=== PATIENT | male | born 1980 | race Hispanic/Latino ===

== ENCOUNTER 2018-12-23 11:24 | Observation (INO) | payer OTHER ==
[~2018-12-23] VITALS: Ht 172.7 cm; Wt 112.1 kg
[2018-12-23] MEDS ORDERED: ASPIRIN 81 MG CHEW TAB PO ONE ×2 (11:45→13:30)
[2018-12-23 12:03] LABS: BASOPHILS % 0.3 % (0.0-1.0); EOSINOPHILS % 0.3 % (0.0-6.0); HEMATOCRIT 49.5 % (38.2-49.6); HEMOGLOBIN 16.2 g/dL (14.0-18.0); LYMPHOCYTES # (AUTO) 2.5 (1.0-3.2); LYMPHOCYTES % 29.1 % (18.0-39.1); MEAN CORPUSCULAR HEMOGLOBIN 26.6 pg (28-32); MEAN CORPUSCULAR HGB CONC 32.7 g/dL (31-35); MEAN CORPUSCULAR VOLUME 81.3 fL (81-99); MONOCYTES # (AUTO) 0.6 (0.2-0.8); MONOCYTES % 6.8 % (4.4-11.3); NEUTROPHILS # (AUTO) 5.5 (2.1-6.9); NEUTROPHILS % 63.3 % (38.7-80.0); PLATELET COUNT 309 x10e3/uL (140-360); RED BLOOD COUNT 6.09 x10e6/uL (4.3-5.7); RED CELL DISTRIBUTION WIDTH 14.5 % (11.7-14.4)
[2018-12-23 12:09] LABS: INR 0.93
[2018-12-23 12:10] LABS: PARTIAL THROMBOPLASTIN TIME 33.9 seconds (23.8-35.5)
[2018-12-23 12:25] LABS: ALANINE AMINOTRANSFERASE 28 IU/L (0-55); ALBUMIN 4.2 g/dL (3.5-5.0); ALBUMIN/GLOBULIN RATIO 1.3 (0.8-2.0); ALKALINE PHOSPHATASE 70 IU/L (40-150); ANION GAP 15.3 mmol/L (8-16); BLOOD UREA NITROGEN 22 mg/dL (7-26); BUN/CREATININE RATIO 16 (6-25); CALCIUM 10.4 mg/dL (8.4-10.2); CARBON DIOXIDE 24 mmol/L (22-29); CHLORIDE 104 mmol/L (98-107); CREATINE KINASE 603 IU/L (30-200); CREATININE, SERUM 1.36 mg/dL (0.72-1.25); EST GLOMERULAR FILTRATION RATE 58 ML/MIN (60-); GLUCOSE 94 mg/dL (74-118); POTASSIUM 4.3 mmol/L (3.5-5.1); SODIUM 139 mmol/L (136-145)
--- NOTE | 2018-12-23 12:30 | NUR ---
C/O OF DIZZINESS WHEN AMBULATING TO BATHROOM
[2018-12-23] MEDS ORDERED: SODIUM CHLORIDE 0.9% 1000ML 2,000 ML IV STA (12:38)
[2018-12-23 12:39] LABS: BILIRUBIN,URINE NEGATIVE (NEGATIVE); CLARITY,URINE CLEAR (CLEAR); COLOR,URINE YELLOW (YELLOW); KETONES,URINE NEGATIVE (NEGATIVE); LEUKOCYTE ESTERASE ,URINE NEGATIVE (NEGATIVE); NITRITE,URINE NEGATIVE (NEGATIVE); PROTEIN,URINE DIPSTICK NEGATIVE (NEGATIVE); URINE UROBILINOGEN 0.2 mg/dL (0.2 - 1)
[2018-12-23 12:49] LABS: BACTERIA,URINE RARE /HPF; EPITHELIAL CELLS,URINE FEW /LPF; RBC,URINE 0-5 /HPF (0-5); WBC,URINE (MAN) 0-5 /HPF (0-5)
--- NOTE | 2018-12-23 12:55 | Diagnostic Imaging Report ---
CT BRAIN WO HISTORY: Syncope COMPARISON: None. TECHNIQUE: Noncontrast axial scans were obtained from skull base to the vertex. Coronal and sagittal reconstructions obtained from the axial data. One or more of the following dose reduction techniques were used: Automated exposure control, adjustment of the mA and/or kV according to patient size, and/or utilization of iterative reconstruction technique. DISCUSSION: Scalp/Skull: Unremarkable. Brain sulci: Appropriate for patient's age. Ventricles: Normal in size and configuration. No hydrocephalus. Extra-axial spaces: No masses or fluid collections. Parenchyma: No abnormal densities. No mass, hemorrhage, or large vascular territory acute infarct. Dural sinuses: No abnormal densities. Sellar/Suprasellar region: Intact. Skull base: Intact. Incidental findings: None. IMPRESSION: No intracranial abnormalities. Signed by: Dr. Laci May M.D. on 12/23/2018 12:52 PM
--- NOTE | 2018-12-23 13:04 | Diagnostic Imaging Report ---
Frontal and lateral views of the chest. HISTORY: Shortness of breath COMPARISON: None available. DISCUSSION: Soft tissue attenuation partially limits sensitivity of the exam. Overlying artifacts. Lungs: Low lung volumes result in bibasilar vascular crowding, accentuation of the pulmonary interstitial markings, central pulmonary vasculature, and the cardiac silhouette. Allowing for these limitations, the findings are as follows: No evidence of a consolidative pneumonia or pulmonary alveolar edema. Pleura: No pleural effusion or pneumothorax. Heart and mediastinum: The cardiomediastinal silhouette appear(s) unremarkable. Bones and soft tissues: Appear unremarkable. IMPRESSION: No acute radiographic abnormality. Signed by: Dr. Vj Veras D.O., M.M.M. on 12/23/2018 1:01 PM
[2018-12-23] MEDS ORDERED: ONDANSETRON HCL INJ 2MG/ML 2ML 2 MG/ML VIAL IV PRN (13:15)
--- OUTSIDE RECORDS SUMMARY | 2018-12-23 13:17 | XMS REPORT ---
[facility] Address Unknown Phone Unavailable Care Team Providers Care Junior Programmer Name Role Phone Annette LORENZANA Unavailable Unavailable Problems This patient has no known problems. Allergies, Adverse Reactions, Alerts This patient has no known allergies or adverse reactions. Medications This patient has no known medications. Results Test Description Test Time Test Comments Text Results Atomic Results Result Comments CHEST 2 VIEWS 2018-12-23 13:00:00 [facility] [address] [address] Patient Name: CHRIS MULLEN MR #: [id number] : 1980 Age/Sex: 38/M Req #: [id number] Adm Physician: Ordered by: RITU SALAS NP Report #: [id number] Location: ER Room/Bed: Procedure: [id number] DX/CHEST 2 VIEWS Exam Date: 12/23/18 Exam Time: 1216 REPORT STATUS: Signed Frontal and lateral views of the chest. HISTORY: Shortn ess of breath COMPARISON: None available. DISCUSSION: Soft tissue attenuation partially limits sensitivity of the exam. Overlying artifacts. Lungs: Low lung volumes result in bibasilar vascular crowding, accentuation of the pulmonary interstitial markings, central pulmonary vasculature, and the cardiac silhouette. Allowing for these limitations, the findings are as follo ws: No evidence of a consolidative pneumonia or pulmonary alveolar edema. Pleura: No pleural effusion or pneumothorax. Heart and mediastinum: The cardiomediastinal silhouette appear(s) unremarkable. Bones and soft tissues: Appear unremarkable. IMPRESSION: No acute radiographic abnormality. Signed by: Dr. Alicia Veras D.O., M.M.M. on 12/23/2018 1:01 PM Dictated By: ALICIA VERAS DO 130 Transcribed By: DEVEN on 12/23/18 130 COPY TO: RITU SALAS NP CT BRAIN WO 2018-12-23 12:49:00 [address] [place] [address] Patient Name: CHRIS MULLEN MR #: [id number] : 1980 Age/Sex: 38/M Req #: [id number] Adm Physician: Ordered by: RITU SALAS NP Report #: [id number] Location: ER Room/Bed: Procedure: [id number] CT/CT BRAIN WO Exam Date: 12/23/18 Exam Time: 1216 REPORT STATUS: Signed CT BRAIN WO HISTORY: Syncope COMPARISON: None. TECHNIQUE: Noncontrast axial scans were obtained from skull base to the vertex. Coronal and sagittal reconstructions obtained from the axial data. One or more of the following dose reduction techniques were used: Automated exposure control, adjustment of the mA and/or kV according to patient size, and/or utilization of iterative reconstruction technique. DISCUSSION: Scalp/Skull: Unremarkable. Brain sulci: Appropriate for patient's age. Ventricles: Normal in size and configuration. No hydrocephalus. Extra-axial spaces: No masses or fluid collections. Parenchyma: No abnormal densities. No mass, hemorrhage, or large vascular territory acute infarct. Dural sinuses: No abnormal densities. Sellar/Suprasellar region: Intact. Skull base: Intact. Incidental findings: None. IMPRESSION: No intracranial abnormalities. Signed by: Dr. Laci May M.D. on 12/23/2018 12:52 PM Dictated By: LACI MAY MD Electronically S igned By: LACI MAY MD on 12/23/181251 Transcribed By: DEVEN on 12/23/181251 COPY TO: RITU SALAS NP
[2018-12-23] MEDS ORDERED: MORPHINE SULFATE INJ 4 MG/ML INJ 1ML IV PRN (13:30)
[2018-12-23 13:40] VITALS: BP 154/96
[2018-12-23 13:43] VITALS: BP 154/96
[2018-12-23] MEDS: SODIUM CHLORIDE 0.9% 1000ML 1,000 ML IV SCH ×3 (13:50→19:52)
[2018-12-23 14:21] VITALS: BP 154/96
[2018-12-23 16:00] VITALS: BP 135/87
--- NOTE | 2018-12-23 16:50 | NUR ---
H&P cc: fatigue and sob HPI: 38yoM, PCP , developed fatigue, found to have acute rhabdomyolysis and HOLLI. Pt states that last 3 weeks, BP has been increased, went to PCP, labs done; resutls pending; But due to SOB and Chest tightness, came to hospital. Pt also had numbness in both hands and left neck. Last stress test many years ago- reported as negative. PMH: Obesity, tobacco use (chew) PShx: appendectomy at 4yo, knee x3 ALlergies; see emr Fh/SH; ; chews tobacco; does vesna/tile Meds; see MAR ROS: no f/c/s/N/V/D/CERNA/vision changes/dizziness/skin rash v/s revd PE tired appearing anicteric ns1s2 mod bs soft nt nd no e/t skin dry n. affect a&ox3; last labs/meds revd A/P: 38yoM HOLLI Acute rhabdomyolysis Obesity BMI 37.3 PLAN IVF hab1c/lipids LIZABETH rodriguez Consider Stress test for hand symptoms. Nicholas Maguire MD, PhD
[2018-12-23 17:51] LABS: CHOL/HDL RATIO 4.3 (3.9-4.7)
[2018-12-23 19:15] VITALS: BP 135/87
[2018-12-23 19:52] LABS: CREATINE KINASE 458 IU/L (30-200)
[2018-12-23 20:00] VITALS: BP 138/96
[2018-12-24] VITALS: BP 135/104
[2018-12-24 04:00] VITALS: BP 141/96
[2018-12-24 05:57] LABS: BASOPHILS % 0.4 % (0.0-1.0); EOSINOPHILS # (AUTO) 0.1 (0.0-0.4); EOSINOPHILS % 1.4 % (0.0-6.0); HEMATOCRIT 48.5 % (38.2-49.6); HEMOGLOBIN 15.3 g/dL (14.0-18.0); LYMPHOCYTES # (AUTO) 3.1 (1.0-3.2); LYMPHOCYTES % 40.7 % (18.0-39.1); MEAN CORPUSCULAR HEMOGLOBIN 26.5 pg (28-32); MEAN CORPUSCULAR HGB CONC 31.5 g/dL (31-35); MEAN CORPUSCULAR VOLUME 84.1 fL (81-99); MONOCYTES # (AUTO) 0.6 (0.2-0.8); MONOCYTES % 7.2 % (4.4-11.3); NEUTROPHILS # (AUTO) 3.8 (2.1-6.9); NEUTROPHILS % 50.2 % (38.7-80.0); PLATELET COUNT 274 x10e3/uL (140-360); RED BLOOD COUNT 5.77 x10e6/uL (4.3-5.7); RED CELL DISTRIBUTION WIDTH 14.6 % (11.7-14.4)
[2018-12-24 06:00] LABS: INR 1.04; PROTHROMBIN TIME 14.1 seconds (11.9-14.5)
[2018-12-24 06:01] LABS: PARTIAL THROMBOPLASTIN TIME 33.7 seconds (23.8-35.5)
[2018-12-24 06:04] LABS: ANION GAP 13.2 mmol/L (8-16); BLOOD UREA NITROGEN 15 mg/dL (7-26); BUN/CREATININE RATIO 13 (6-25); CALCIUM 9.3 mg/dL (8.4-10.2); CARBON DIOXIDE 24 mmol/L (22-29); CHLORIDE 107 mmol/L (98-107); CREATININE, SERUM 1.16 mg/dL (0.72-1.25); EST GLOMERULAR FILTRATION RATE > 60 ML/MIN (60-); GLUCOSE 99 mg/dL (74-118); POTASSIUM 4.2 mmol/L (3.5-5.1); SODIUM 140 mmol/L (136-145)
[2018-12-24 06:28] LABS: CREATINE KINASE MB 2.7 ng/mL (0-5.0)
--- NOTE | 2018-12-24 07:28 | NUR ---
D/C summary Principal Dx: HOLLI Acute rhabdomyolysis Secondary Dx: Obesity BMI 37.3 PLAN IVF hab1c/lipids LIZABETH bahcharly Consider Stress test for hand symptoms. 12/24 CPK improving; LDL 97. cont fluids. d/c home f/u pcp 1 week; drinks lots of water stable d/c>35mins Nicholas Maguire MD, PhD
--- NOTE | 2018-12-24 07:30 | Diagnostic Imaging Report ---
EXAMINATION: CHEST SINGLE (PORTABLE) INDICATION: ^SOB ^[id number] ^[id number] COMPARISON: 12/23/2018 FINDINGS: AP view TUBES and LINES: None. LUNGS: Limited by body habitus and low lung volumes. Mild central vascular congestion. PLEURA: No pleural effusion or pneumothorax. HEART AND MEDIASTINUM: The cardiomediastinal silhouette is unremarkable. BONES AND SOFT TISSUES: No acute osseous lesion. Soft tissues are unremarkable. UPPER ABDOMEN: No free air under the diaphragm. IMPRESSION: Mild central vascular congestion. Otherwise, unremarkable. Signed by: Dr. Silvio Ross MD on 12/24/2018 7:27 AM
[2018-12-24 07:49] VITALS: BP 144/80
[2018-12-24 08:22] VITALS: BP 144/80
[2018-12-24] MEDS ORDERED: ASPIRIN 81 MG ENTERIC COATED PO SCH (09:00)
[2018-12-24 11:46] VITALS: BP 139/96
[2018-12-24 15:37] VITALS: BP 158/99
--- NOTE | 2018-12-24 17:05 | NUR ---
Discharge order received from Dr Maguire, stated that patient can go home, f/up pcp in 5 days, drink plenty of water
--- NOTE | 2018-12-24 17:41 | NUR ---
patient discharged home, No new prescriptions from Dr Maguire. IV canula removed with tip intact, no ss of infiltration, not in any distress. family at bed side to pick patient
== END 2018-12-24 17:54 | disposition home or self-care (01) ==
LOC: ER 11:24 → ERHOLD 13:14 → IMCU 13:42
PROVIDERS: ADMIT Internal Medicine; ATTEND Internal Medicine
DX: N17.9 Acute kidney failure, unspecified (principal); M62.82 Rhabdomyolysis; E66.9 Obesity, unspecified; Z68.37 Body mass index [BMI] 37.0-37.9, adult; F17.220 Nicotine dependence, chewing tobacco, uncomplicated
CPT/HCPCS: 36415 ×2; 70450; 71045; 71046; 80048; 80053; 80061; 81001; 82550 ×2; 82553 ×2; 83036; 84484 ×2; 85025 ×2; 85379; 85610 ×2; 85730 ×2; 93005; 93306; 93880; 99284; G0378 ×2; J7030 ×2

== ENCOUNTER 2019-08-06 06:37 | Emergency (ER) | payer OTHER ==
[~2019-08-06] VITALS: Ht 175.3 cm; Wt 99.8 kg
--- OUTSIDE RECORDS SUMMARY | 2019-08-06 06:40 | XMS REPORT | Continuity of Care Document ---
Author Author [facility] Organization [facility] Address [address] [place] [address] [address]. [address] [place] [address] Phone Unavailable Care Team Providers Care Willow Machine Operator Name Role Phone NONSTAFF PCP Unavailable JAMIE RUIZ Attphys Unavailable JAMIE RUIZ Admphys Unavailable Payers Payer Name Policy Type Policy Number Effective Date Expiration Date Godfrey Fuentes Pos [id number] 2011 00:00:00 [facility] Problems This patient has no known problems. Allergies, Adverse Reactions, Alerts This patient has no known allergies or adverse reactions. Medications This patient has no known medications. Procedures Procedure Date / Time Performed Performing Clinician [facility] e X-ray of chest, two views 2018-12-23 00:00:00 RITU SALAS CH I [facility] Computed tomography of brain without radiopaque contrast 201 11-14-19 00:00:00 RITU SALAS [facility] Encounters Start Date/Time End Date/Time Encounter Type Admission Type Attendi [facility] Care Department Encounter ID Source 2018-12-23 13:14:00 2018-12-24 17:54:00 Discharged Inpatient (obs) 1 JAMIE RUIZ [facility] [id number] [facility] Results Test Description Test Time Test Comments Results Result Comments Source CHEST SINGLE (PORTABLE) 2018-12-24 07:26:00 [facility] [address] [place], [place] [address] Patient Name: CHRIS MULLEN MR #: [id number] : 1980 Age/Sex: 38/M Req #: [id number] Adm Physician: JAMIE RUIZ MD Ordered by: RITU SALAS REAL ESTATE MANAGEMENT SPECIALIST Report #: [id number] Location: [facility] Room/Bed: [place] [address] Procedure: [id number] DX/CHEST SINGLE (PORTABLE) Exam Date: 12/24/18 Exam Time: 514 REPORT STATUS: Signed EXAMINATION: CHEST SINGLE (PORTABLE) INDICATION: SOB [id number] COMPARISON: 12/23/2018 FINDINGS: AP view TUBES and LINES: None. LUNGS: Limited by body habitus and low lung volumes. Mild central vascular congestion. PLEURA: No pleural effusion or pneumothorax. HEART AND MEDIASTINUM: The cardiomediastinal silhouette is unremarkable. BONES AND SOFT TISSUES: No acute osseous lesion. Soft tissues are unremarkable. UPPER ABDOMEN: No free air under the diaphragm. IMPRESSION: Mild central vascular congestion. Otherwise, unremarkable. Signed by: Dr. Silvio Brooks MD on 12/24/2018 7:27 AM Dictated By: SILVIO BROOKS MD 6 Transcribed By: DEVEN on 12/24/18726 COPY TO: RITU SALAS NP Creatine Kinase MB 2018-12-24 06:31:00 Test Item Creatine Kinase MB (test code = 14402-0) 2.70 0-5.0 [facility] [id number] 06:31:00* Test Item Value Reference Range Interpretation Comments Troponin I (test code = ULF9319) 0.006 0-0.300 [facility] CenterCreatine Inrfby9935-17-33 06:25:00* Test Item Value Reference Range Interpretation Comments Creatine Kinase (test code = 2157-6) 409 30-200 H [facility] CenterWhite Blood Gypba3713-54-10 06:10:00* Test Item Value Reference Range Interpretation Comments White Blood Count (test code = 6690-2) 7.61 4.8-10.8 [facility] CenterRed Blood Jcpbz6242-94-64 06:10:00* Test Item Value Reference Range Interpretation Comments Red Blood Count (test code = 789-8) 5.77 4.3-5.7 H [facility] CenterHemoglobin2019-10-21 06:10:00* Test Item Value Reference Range Interpretation Comments Hemoglobin (test code = 56043-2) 15.3 14.0-18.0 [facility] CenterHematocrit2019-10-21 06:10:00* Test Item Value Reference Range Interpretation Comments Hematocrit (test code = 4544-3) 48.5 38.2-49.6 [facility] CenterMean Corpuscular Rqelej7428-31-97 06:10:00* Test Item Value Reference Range Interpretation Comments Mean Corpuscular Volume (test code = 787-2) 84.1 81-99 [facility] CenterMean Corpuscular Wweihzoopk0869-27-09 06:10:00* Test Item Value Reference Range Interpretation Comments Mean Corpuscular Hemoglobin (test code = 785-6) 26.5 28-32 L [facility] CenterMean Corpuscular Hemoglobin Concent 2018-12-24 06:10:00* Test Item Value Reference Range Interpretation Comments Mean Corpuscular Hemoglobin Concent (test code = 786-4) 31.5 31-35 [facility] CenterRed Cell Distribution Ewodp0427-37-79 06:10:00* Test Item Value Reference Range Interpretation Comments Red Cell Distribution Width (test code = 89831-4) 14.6 11.7 -14.4 H [facility] CenterPlatelet Otyej0430-37-54 06:10:00* Test Item Value Reference Range Interpretation Comments Platelet Count (test code = 777-3) 274 140-360 [facility] CenterNeutrophils (%) (Auto)2018-12-24 06:10:00 * Test Item Value Reference Range Interpretation Comments Neutrophils (%) (Auto) (test code = 31985-8) 50.2 38.7-80.0 [facility] CenterLymphocytes (%) (Auto)2018-12-24 06:10:00 * Test Item Value Reference Range Interpretation Comments Lymphocytes (%) (Auto) (test code = 736-9) 40.7 18.0-39.1 H [facility] CenterMonocytes (%) (Auto)2018-12-24 06:10:00* Test Item Value Reference Range Interpretation Comments Monocytes (%) (Auto) (test code = 5905-5) 7.2 4.4-11.3 [facility] CenterEosinophils (%) (Auto)2018-12-24 06:10:00 * Test Item Value Reference Range Interpretation Comments Eosinophils (%) (Auto) (test code = 713-8) 1.4 0.0-6.0 [facility] CenterBasophils (%) (Auto)2018-12-24 06:10:00* Test Item Value Reference Range Interpretation Comments Basophils (%) (Auto) (test code = 706-2) 0.4 0.0-1.0 [facility] CenterIM GRANULOCYTES %2018-12-24 06:10:00* Test Item Value Reference Range Interpretation Comments IM GRANULOCYTES % (test code = IM GRANULOCYTES %) 0.1 0.0- 1.0 [facility] CenterNeutrophils # (Auto)2018-12-24 06:10:00* Test Item Value Reference Range Interpretation Comments Neutrophils # (Auto) (test code = 751-8) 3.8 2.1-6.9 [facility] CenterLymphocytes # (Auto)2018-12-24 06:10:00* Test Item Value Reference Range Interpretation Comments Lymphocytes # (Auto) (test code = 85826-6) 3.1 1.0-3.2 [facility] CenterMonocytes # (Auto)2018-12-24 06:10:00* Test Item Value Reference Range Interpretation Comments Monocytes # (Auto) (test code = 742-7) 0.6 0.2-0.8 [facility] CenterEosinophils # (Auto)2018-12-24 06:10:00* Test Item Value Reference Range Interpretation Comments Eosinophils # (Auto) (test code = 711-2) 0.1 0.0-0.4 [facility] CenterBasophils # (Auto)2018-12-24 06:10:00* Test Item Value Reference Range Interpretation Comments Basophils # (Auto) (test code = 704-7) 0.0 0.0-0.1 [facility] CenterAbsolute Immature Granulocyte (auto 2018-12-24 06:10:00* Test Item Value Reference Range Interpretation Comments Absolute Immature Granulocyte (auto (alonso t code = Absolute Immature Granulocyte (auto) 0.01 0-0.1 [facility]odium Duoli5081-53-13 06:06:00* Test Item Value Reference Range Interpretation Comments Sodium Level (test code = 2951-2) 140 136-145 [facility] CenterPotassium Riine6389-50-91 06:06:00* Test Item Value Reference Range Interpretation Comments Potassium Level (test code = 2823-3) 4.2 3.5-5.1 [facility] CenterChloride Osglx4471-28-91 06:06:00* Test Item Value Reference Range Interpretation Comments Chloride Level (test code = 2075-0) 107 98-107 [facility] CenterCarbon Dioxide Oxxty6534-69-63 06:06:00* Test Item Value Reference Range Interpretation Comments Carbon Dioxide Level (test code = 2028-9) 24 22-29 [facility] CenterAnion Jty1411-09-95 06:06:00* Test Item Value Reference Range Interpretation Comments Anion Gap (test code = 82126-5) 13.2 8-16 [facility] CenterBlood Urea Dyatawot5732-29-91 06:06:00* Test Item Value Reference Range Interpretation Comments Blood Urea Nitrogen (test code = 3094-0) 15 7-26 [facility] CenterCreatinine2019-10-21 06:06:00* Test Item Value Reference Range Interpretation Comments Creatinine (test code = 2160-0) 1.16 0.72-1.25 [facility] CenterBUN/Creatinine Mmzvw4515-37-53 06:06:00* Test Item Value Reference Range Interpretation Comments BUN/Creatinine Ratio (test code = 3097-3) 13 6-25 [facility] CenterEstimat Glomerular Filtration Rate 2018-12-24 06:06:00* Test Item Value Reference Range Interpretation Comments Estimat Glomerular Filtration Rate (test code = 355926731) > 60 >60 Ranges were taken from the National Kidney Disease Education Program and the [facility] Kidney Foundation literature.Reference ranges:60 or greater: Yxezpt34-76 ( for 3 consecutive months): Chronic kidney disease 15 or less: Kidney failureBaylor University Medical CenterGlucose Rkltk8212-14-83 06:06:00* Test Item Value Reference Range Interpretation Comments Glucose Level (test code = ZML7614) 99 74-118 [facility] CenterCalcium Oylfu8979-91-11 06:06:00* Test Item Value Reference Range Interpretation Comments Calcium Level (test code = 36247-0) 9.3 8.4-10.2 [facility] CenterProthrombin Uikj8276-60-23 06:02:00* Test Item Value Reference Range Interpretation Comments Prothrombin Time (test code = 5902-2) 14.1 11.9-14.5 [facility] CenterProthromb Time International Ratio 2018-12-24 06:02:00* Test Item Value Reference Range Interpretation Comments Prothromb Time International Ratio (test code = 6301-6) 1.04 Oral Anticoagulant Therapy INR Values:1. Low Intensity Therapy 1.5 - 2.02 . Moderate Intensity Therapy 2.0 - 3.03. High Intensity Therapy(1) 2.5 - 3. 54. High Intensity Therapy(2) 3.0 - 4.05. Panic Value INR > 5.0 [facility] CenterActivated Partial Thromboplast Time 2018-12-24 06:02:00* Test Item Value Reference Range Interpretation Comments Activated Partial Thromboplast Time (test code = 45115-9) 33.7 23.8-35.5 [facility] CenterHemoglobin A1c Mpvxyhf1790-18-50 17:54:00 * Test Item Value Reference Range Interpretation Comments Hemoglobin A1c Percent (test code = Hemoglobin A1c Percent) 5.6 4.0-7.0 [facility] CenterTriglycerides Zfgba0009-02-07 17:54:00* Test Item Value Reference Range Interpretation Comments Triglycerides Level (test code = 2571-8) 90 0-149 [facility] CenterCholesterol Bgmex0990-68-41 17:54:00* Test Item Value Reference Range Interpretation Comments Cholesterol Level (test code = 2093-3) 150 0-199 Less than 200 mg/dL Low Arxa937 - 239 mg/dL Borderline Fgqb770 m g/dl and greater High Risk [facility] CenterLDL Droqkbcixgo4430-17-90 17:54:00* Test Item Value Reference Range Interpretation Comments LDL Cholesterol (test code = 2089-1) 97 60-130 [facility] CenterHDL Qwcurdamdbs6750-76-42 17:54:00* Test Item Value Reference Range Interpretation Comments HDL Cholesterol (test code = 2085-9) 35 40-60 L [facility] CenterCholesterol/HDL Slcep8204-88-62 17:54:00 * Test Item Value Reference Range Interpretation Comments Cholesterol/HDL Ratio (test code = 9830-1) 4.3 3.9-4.7 [facility] CenterCHEST 2 NEHNX5554-36-95 13:00:00 [facility] [address] [place] [address] Patient Name: CHRIS MULLEN MR #: [id number] : 1980 Age/Sex: 38/M Req #: [id number] Adm Physician: Ordered by: RITU SALAS REAL ESTATE MANAGEMENT SPECIALIST Report #: [id number] Location: Room/Bed: Procedure: [id number] DX/C HEST 2 VIEWS Exam Date: 12/23/18 Exam Time: 1216 REPORT STATUS: Signed Frontal and l ateral views of the chest. HISTORY: Shortness of breath COMPARISON: Non e available. DISCUSSION: Soft tissue attenuation partially limits se nsitivity of the exam. Overlying artifacts. Lungs: Low lung volumes r esult in bibasilar vascular crowding, accentuation of the pulmonary interstiti al markings, central pulmonary vasculature, and the cardiac silhouette. Allow ing for these limitations, the findings are as follows: No evidence of a con solidative pneumonia or pulmonary alveolar edema. Pleura: No pleural ef fusion or pneumothorax. Heart and mediastinum: The cardiomediastinal si lhouette appear(s) unremarkable. Bones and soft tissues: Appear unremar kable. IMPRESSION: No acute radiographic abnormality. Signed by: Dr. Alicia Veras D.O., M.M.M. on 12/23/2018 1:01 PM Dictated By: ALICIA FRIAS DO 1301 Transcribed By: DEVEN on 12/23/18 1301 COPY TO: RITU SALAS NP Urine WBC 2018-12-23 12:49:00* Test Item Value Reference Range Interpretation Comments Urine WBC (test code = 5821-4) 0-5 0-5 [facility] CenterUrine EPL5536-73-37 12:49:00* Test Item Value Reference Range Interpretation Comments Urine RBC (test code = 65518-8) 0-5 0-5 [facility] CenterUrine Jpfsumyq2208-05-71 12:49:00* Test Item Value Reference Range Interpretation Comments Urine Bacteria (test code = 26021-2) RARE NONE [facility] CenterUrine Epithelial Tntxq6789-42-07 12:49:00 * Test Item Value Reference Range Interpretation Comments Urine Epithelial Cells (test code = 34179-5) FEW NONE [facility] CenterCT BRAIN BN1322-25-65 12:49:00 [place] [address] Patient Name: CHRIS MULLEN MR #: [id number] : 1980 Age/Sex: 38/M Req #: [id number] Adm Physician: Ordered by: RITU SALAS NP Report #: [id number] Location: ER Room/Bed: Procedure: [id number] CT/C T BRAIN WO Exam Date: 12/23/18 Exam Time: 6 REPORT STATUS: Signed CT BRAIN WO HISTORY: Syncope COMPARISON: None. TECHNIQUE: Noncontrast axial scans were obtained from skull base to the vertex. Coronal and sagittal recon structions obtained from the axial data. One or more of the following dose re duction techniques were used: Automated exposure control, adjustment of the mA and/or kV according to patient size, and/or utilization of iterative reconstr uction technique. DISCUSSION: Scalp/Skull: Unremarkable. Brain sulci : Appropriate for patient's age. Ventricles: Normal in size and configuration. No hydrocephalus. Extra-axial spaces: No masses or fluid collections. Parenchyma: No abnormal densities. No mass, hemorrhage, or large vascular territory acute infarct. Dural sinuses: No abnormal densities. Sellar /Suprasellar region: Intact. Skull base: Intact. Incidental findings: None. IMPRESSION: No intracranial abnormalities. Signed by: Dr. Annette May M.D. on 12/23/2018 12:52 PM Dictated By: RHETT MAY MD 125 Transcribed By: DEVEN on 12/23/18 125 COPY TO: RITU SALAS NP D-Dimer Quantitative (PE/DVT)2018-12-23 12:47:00* Test Item Value Reference Range Interpretation Comments D-Dimer Quantitative (PE/DVT) (test code = 33067-8) 0.06 0. 00-0.45 [facility] CenterUrine Nhkbm8221-22-53 12:47:00* Test Item Value Reference Range Interpretation Comments Urine Color (test code = 5778-6) YELLOW YELLOW [facility] CenterUrine Rfvudmi1078-10-86 12:47:00* Test Item Value Reference Range Interpretation Comments Urine Clarity (test code = 72076-4) CLEAR CLEAR [facility] CenterUrine Specific Aqwmnny8247-09-94 12:47:00 * Test Item Value Reference Range Interpretation Comments Urine Specific [place] (test code = 5811-5) 1.015 1.010-1.02 5 [facility] CenterUrine zY3920-17-58 12:47:00* Test Item Value Reference Range Interpretation Comments Urine pH (test code = 86099-8) 6 5-7 [facility] CenterUrine Leukocyte Vzbndzvs0004-36-34 12:47:00* Test Item Value Reference Range Interpretation Comments Urine Leukocyte Esterase (test code = 19002-8) NEGATIVE NEGATIV E [facility] CenterUrine Havcevd2878-58-80 12:47:00* Test Item Value Reference Range Interpretation Comments Urine Nitrite (test code = 43187-1) NEGATIVE NEGATIVE [facility] CenterUrine Ouqmtca6666-44-79 12:47:00* Test Item Value Reference Range Interpretation Comments Urine Protein (test code = 53253-6) NEGATIVE NEGATIVE [facility] CenterUrine Glucose (UA)2018-12-23 12:47:00* Test Item Value Reference Range Interpretation Comments Urine Glucose (UA) (test code = 53707-4) NEGATIVE NEGATIVE [facility] CenterUrine Nlbdvfo7622-00-84 12:47:00* Test Item Value Reference Range Interpretation Comments Urine Ketones (test code = 40303-8) NEGATIVE NEGATIVE [facility] CenterUrine Etmhavudegha9751-36-09 12:47:00* Test Item Value Reference Range Interpretation Comments Urine Urobilinogen (test code = 39768-6) 0.2 0.2-1 [facility] CenterUrine Vrdthpbmk9845-10-79 12:47:00* Test Item Value Reference Range Interpretation Comments Urine Bilirubin (test code = 1977-8) NEGATIVE NEGATIVE [facility] CenterUrine Mtgbp5651-77-54 12:47:00* Test Item Value Reference Range Interpretation Comments Urine Blood (test code = 98257-4) NEGATIVE NEGATIVE [facility] CenterTotal Kijnnhoxs1093-57-64 12:27:00* Test Item Value Reference Range Interpretation Comments Total Bilirubin (test code = 1975-2) 0.5 0.2-1.2 [facility] CenterAspartate Amino Transf (AST/SGOT) 2018-12-23 12:27:00* Test Item Value Reference Range Interpretation Comments Aspartate Amino Transf (AST/SGOT) (test code = Aspartate Amino Transf (AST/SGOT)) 36 5-34 H [facility] CenterAlanine Aminotransferase (ALT/SGPT) 2018-12-23 12:27:00* Test Item Value Reference Range Interpretation Comments Alanine Aminotransferase (ALT/SGPT) (test code = 1742-6) 28 0-55 [facility] CenterTotal Lcfvsxn4362-19-01 12:27:00* Test Item Value Reference Range Interpretation Comments Total Protein (test code = 2885-2) 7.5 6.5-8.1 [facility] CenterAlbumin2019-10-20 12:27:00* Test Item Value Reference Range Interpretation Comments Albumin (test code = 1751-7) 4.2 3.5-5.0 [facility] CenterGlobulin2019-10-20 12:27:00* Test Item Value Reference Range Interpretation Comments Globulin (test code = 48428-7) 3.3 2.3-3.5 [facility] CenterAlbumin/Globulin Uvcgy6350-97-69 12:27:00 * Test Item Value Reference Range Interpretation Comments Albumin/Globulin Ratio (test code = 1759-0) 1.3 0.8-2.0 [facility] CenterAlkaline Wsfxefwxvtx9990-13-37 12:27:00* Test Item Value Reference Range Interpretation Comments Alkaline Phosphatase (test code = 6768-6) 70 40-150 [facility]
[2019-08-06] MEDS ORDERED: SODIUM CHLORIDE 0.9% 1000ML 1,000 ML IV STA (07:18)
[2019-08-06] MEDS ORDERED: ONDANSETRON HCL INJ 2MG/ML 2ML 2 MG/ML VIAL IV STA (07:18)
[2019-08-06] MEDS ORDERED: KETOROLAC TROMETHAMINE 30 MG/ML VIAL IV STA (07:18)
[2019-08-06 07:48] LABS: BASOPHILS % 0.3 % (0.0-1.0); EOSINOPHILS # (AUTO) 0.1 (0.0-0.4); EOSINOPHILS % 0.9 % (0.0-6.0); HEMATOCRIT 47.5 % (38.2-49.6); HEMOGLOBIN 15.1 g/dL (14.0-18.0); LYMPHOCYTES # (AUTO) 1.4 (1.0-3.2); LYMPHOCYTES % 18.5 % (18.0-39.1); MEAN CORPUSCULAR HEMOGLOBIN 27.1 pg (28-32); MEAN CORPUSCULAR HGB CONC 31.8 g/dL (31-35); MEAN CORPUSCULAR VOLUME 85.1 fL (81-99); MONOCYTES # (AUTO) 0.5 (0.2-0.8); MONOCYTES % 6.9 % (4.4-11.3); NEUTROPHILS # (AUTO) 5.5 (2.1-6.9); NEUTROPHILS % 72.9 % (38.7-80.0); PLATELET COUNT 258 x10e3/uL (140-360); RED BLOOD COUNT 5.58 x10e6/uL (4.3-5.7); RED CELL DISTRIBUTION WIDTH 14.4 % (11.7-14.4)
[2019-08-06 08:14] LABS: ALANINE AMINOTRANSFERASE 21 IU/L (0-55); ALBUMIN 4.2 g/dL (3.5-5.0); ALBUMIN/GLOBULIN RATIO 1.4 (0.8-2.0); ALKALINE PHOSPHATASE 76 IU/L (40-150); ANION GAP 13.4 mmol/L (8-16); BLOOD UREA NITROGEN 12 mg/dL (7-26); BUN/CREATININE RATIO 9 (6-25); CALCIUM 9.2 mg/dL (8.4-10.2); CARBON DIOXIDE 24 mmol/L (22-29); CHLORIDE 104 mmol/L (98-107); CREATINE KINASE 229 IU/L (30-200); CREATININE, SERUM 1.28 mg/dL (0.72-1.25); EST GLOMERULAR FILTRATION RATE > 60 ML/MIN (60-); GLUCOSE 120 mg/dL (74-118); MAGNESIUM 1.8 MG/DL (1.3-2.1); POTASSIUM 4.4 mmol/L (3.5-5.1); SODIUM 137 mmol/L (136-145)
--- NOTE | 2019-08-06 08:19 | Diagnostic Imaging Report ---
CT Abdomen and Pelvis without contrast INDICATION: ^Stone Protocol ^[id number] ^0730 ^Y TECHNIQUE: Thin collimation axial images obtained from the diaphragm to the level of the pubic symphysis without nonionic intravenous contrast. Dose reduction techniques used: Automated exposure control, adjustment of the mAs and/or kVp according to patient size, standardized low-dose protocol, and/or iterative reconstruction technique. RADIATION DOSE: Total DLP: 715.7 mGy*cm Estimated effective dose: (DLP x 0.015 x size factor) mSv CTDIvol has been reviewed. It is below the limits set by the Radiation Protocol Committee (RPC). COMPARISON: Report of CT of the abdomen/pelvis performed 07/07/2011. ABDOMEN FINDINGS: Lung Bases: Noncalcified nodule in the lateral right lower lobe measures 3 mm. The visualized portion of the mediastinum is normal. Liver: Mildly decreased attenuation. No mass. Gallbladder: Present and appears normal. No ductal dilatation. Pancreas: Normal attenuation without mass. Spleen: Normal size without mass. Adrenal Glands: No evidence for mass. Kidneys: Right: No renal calculus. No cortical mass or hydronephrosis Left: Mildly edematous. Calculus in the interpolar region measures 4 mm. Lower pole calculus measures 6 mm. No cortical soft tissue mass. Mild fullness of the collecting system. No perinephric inflammation. Lymph Nodes: No enlarged abdominal or retroperitoneal lymph nodes. Aorta: Normal in diameter. PELVIS FINDINGS: Bowel: Stomach: Normal. Small Bowel: Normal in caliber with normal wall thickness. Large Bowel: Normal in caliber with normal wall thickness. Appendix: Not visualized. Bladder: 2 mm calculus in the posterior bladder to the left of midline. Ureters: Mild distention of the left ureter throughout its course with trace periureteric inflammation. The right ureter is normal. Peritoneum/retroperitoneum: No free fluid or fluid collection. Bones: Mild degenerative changes of the spine. Bilateral pars defects of L5 with grade 1 anterolisthesis of L5 on S1. Soft tissues: Small fat-containing umbilical hernia. IMPRESSION: 1. Mild left renal edema and minimal left hydroureteronephrosis secondary to a recently passed stone into the urinary bladder. 2. Left intrarenal calculi as described above. 3. Mildly decreased hepatic attenuation is suggestive of hepatocellular dysfunction, most commonly steatosis. Signed by: Dr. Delmi Sexton MD on 08/06/2019 8:16 AM
[2019-08-06 08:31] LABS: COLOR,URINE YELLOW (YELLOW)
[2019-08-06 08:32] LABS: BILIRUBIN,URINE SMALL (NEGATIVE); CLARITY,URINE CLEAR (CLEAR); KETONES,URINE TRACE (NEGATIVE); LEUKOCYTE ESTERASE ,URINE NEGATIVE (NEGATIVE); NITRITE,URINE NEGATIVE (NEGATIVE); PROTEIN,URINE DIPSTICK NEGATIVE (NEGATIVE); URINE UROBILINOGEN 0.2 mg/dL (0.2 - 1)
[2019-08-06 08:48] LABS: BACTERIA,URINE FEW /HPF; CALCIUM OXALATE CRYSTALS,UR FEW (FEW); EPITHELIAL CELLS,URINE RARE /LPF; RBC,URINE >50 /HPF (0-5); WBC,URINE (MAN) 0-5 /HPF (0-5)
--- NOTE | 2019-08-06 08:55 | Emergency Department Note ---
History of Present Illnes History of Present Illness Chief Complaint: Abdominal Complaints History of Present Illness This is a 38 year old male PATIENT IN FROM HOME WITH COMPLAINTS OF LEFT FLANK PAIN AND DIFFICULTY URINATING SINCE THIS MORNING; STATES HAS NAUSEA, BUT NO VOMITING. RATES PAIN 10/10. Historian: Patient Arrival Mode: Car Target Setter Required: No Onset (how long ago): hour(s) Location: left flank Quality: pain Radiation: other (radiating to left groin) Severity: moderate Onset quality: sudden Duration (how long): hour(s) Timing of current episode: constant Progression: waxing and waning Chronicity: new Context: recent illness Relieving factors: none Exacerbating factors: none Associated symptoms: denies other symptoms Treatments prior to arrival: none Past Medical/Family History Physician Review I have reviewed the patient's past medical and family history. Any updates have been documented here. Past Medical History Recent Fever: No Clinical Suspicion of Infectio: No New/Unexplained Change in Ment: No Past Medical History: Kidney Stones Other Medical History: DIPS TABACCO, h/o Rhabdomyolysis Past Surgical History: Appendectomy Other Surgery: right knee surgery x 3 Social History Smoking Cessation: Never Smoker Counseling Performed: No Alcohol Use: None Any Illegal Drug Use: No TB Exposure/Symptoms: No Physically hurt or threatened: No Family History Family history of heart diseas: No Other Last Tetanus: UTD Any Pre-Existing Lines (PICC,: No Is patient up to date on immun: Yes Last Flu: UTD Last Pneumovax: NA Review of Systems Review of Systems Constitutional: no symptoms EENTM: no symptoms Cardiovascular: no symptoms Respiratory: no symptoms Gastrointestinal: no symptoms Genitourinary: as per HPI Musculoskeletal: as per HPI, back pain (left flank radiating to left groin) Neurological: no symptoms Psychological: no symptoms Endocrine: no symptoms Hematological/Lymphatic: no symptoms Review of other systems All other systems reviewed and negative. Physical Exam Related Data Allergies: Coded Allergies: No Known Allergies (Unverified , 07/06/11) Triage Vital Signs Vital Signs Date Time Temp Pulse Resp B/P (MAP) Pulse Ox O2 Delivery O2 Flow Rate FiO2 08/06/19 07:02 97.8 80 18 145/91 99 Physical Exam CONSTITUTIONAL Constitutional: well-developed, well-nourished HENT HENT: normocephalic, atraumatic, oropharynx clear/moist, nose normal HENT L/R: left ext ear normal, right ext ear normal EYES Eyes: PERRL, conjunctivae normal NECK Neck: ROM normal PULMONARY Pulmonary: effort normal, breath sounds normal CARDIOVASCULAR Cardiovascular: regular rhythm, heart sounds normal, capillary refill normal, normal rate GASTROINTESTINAL Abdominal: soft, nontender, bowel sounds normal; left CVA tenderness, right CVA tenderness GENITOURINARY Genitourinary: exam deferred SKIN Skin: warm, dry MUSCULOSKELETAL Musculoskeletal: ROM normal NEUROLOGICAL Neurological: alert, oriented x 3, no gross motor or sensory deficits PSYCHOLOGICAL Psychological: mood/affect normal, judgement normal Results Laboratory Result Diagram: 08/06/19 0706 08/06/19 0706 Laboratory Laboratory Tests Test 08/06/19 07:06 White Blood Count 7.55 x10e3/uL (4.8-10.8) Red Blood Count 5.58 x10e6/uL (4.3-5.7) Hemoglobin 15.1 g/dL (14.0-18.0) Hematocrit 47.5 % (38.2-49.6) Mean Corpuscular Volume 85.1 fL (81-99) Mean Corpuscular Hemoglobin 27.1 pg (28-32) Mean Corpuscular Hemoglobin Concent 31.8 g/dL (31-35) Red Cell Distribution Width 14.4 % (11.7-14.4) Platelet Count 258 x10e3/uL (140-360) Neutrophils (%) (Auto) 72.9 % (38.7-80.0) Lymphocytes (%) (Auto) 18.5 % (18.0-39.1) Monocytes (%) (Auto) 6.9 % (4.4-11.3) Eosinophils (%) (Auto) 0.9 % (0.0-6.0) Basophils (%) (Auto) 0.3 % (0.0-1.0) Neutrophils # (Auto) 5.5 (2.1-6.9) Lymphocytes # (Auto) 1.4 (1.0-3.2) Monocytes # (Auto) 0.5 (0.2-0.8) Eosinophils # (Auto) 0.1 (0.0-0.4) Basophils # (Auto) 0.0 (0.0-0.1) Absolute Immature Granulocyte (auto 0.04 x10e3/uL (0-0.1) Urine Color Yellow (YELLOW) Urine Clarity Clear (CLEAR) Urine pH 5.5 (5 - 7) Urine Specific Hersey >=1.030 (1.010-1.025) Urine Protein Negative (NEGATIVE) Urine Glucose (UA) Negative (NEGATIVE) Urine Ketones Trace (NEGATIVE) Urine Blood Large (NEGATIVE) Urine Nitrite Negative (NEGATIVE) Urine Bilirubin Small (NEGATIVE) Urine Urobilinogen 0.2 mg/dL (0.2 - 1) Urine Leukocyte Esterase Negative (NEGATIVE) Urine RBC >50 /HPF (0-5) Urine WBC 0-5 /HPF (0-5) Urine Epithelial Cells Rare /LPF (NONE) Urine Calcium Oxalate Crystals Few (FEW) Urine Bacteria Few /HPF (NONE) Sodium Level 137 mmol/L (136-145) Potassium Level 4.4 mmol/L (3.5-5.1) Chloride Level 104 mmol/L (98-107) Carbon Dioxide Level 24 mmol/L (22-29) Anion Gap 13.4 mmol/L (8-16) Blood Urea Nitrogen 12 mg/dL (7-26) Creatinine 1.28 mg/dL (0.72-1.25) Estimat Glomerular Filtration Rate > 60 ML/MIN (60-) BUN/Creatinine Ratio 9 (6-25) Glucose Level 120 mg/dL (74-118) Calcium Level 9.2 mg/dL (8.4-10.2) Magnesium Level 1.8 MG/DL (1.3-2.1) Total Bilirubin 0.3 mg/dL (0.2-1.2) Aspartate Amino Transf (AST/SGOT) 22 IU/L (5-34) Alanine Aminotransferase (ALT/SGPT) 21 IU/L (0-55) Alkaline Phosphatase 76 IU/L (40-150) Creatine Kinase 229 IU/L (30-200) Creatine Kinase MB 1.20 ng/mL (0-5.0) Troponin I 0.007 ng/mL (0-0.300) Total Protein 7.3 g/dL (6.5-8.1) Albumin 4.2 g/dL (3.5-5.0) Globulin 3.1 g/dL (2.3-3.5) Albumin/Globulin Ratio 1.4 (0.8-2.0) Laboratory Tests Test 08/06/19 07:06 White Blood Count 7.55 x10e3/uL (4.8-10.8) Red Blood Count 5.58 x10e6/uL (4.3-5.7) Hemoglobin 15.1 g/dL (14.0-18.0) Hematocrit 47.5 % (38.2-49.6) Mean Corpuscular Volume 85.1 fL (81-99) Mean Corpuscular Hemoglobin 27.1 pg (28-32) Mean Corpuscular Hemoglobin Concent 31.8 g/dL (31-35) Red Cell Distribution Width 14.4 % (11.7-14.4) Platelet Count 258 x10e3/uL (140-360) Neutrophils (%) (Auto) 72.9 % (38.7-80.0) Lymphocytes (%) (Auto) 18.5 % (18.0-39.1) Monocytes (%) (Auto) 6.9 % (4.4-11.3) Eosinophils (%) (Auto) 0.9 % (0.0-6.0) Basophils (%) (Auto) 0.3 % (0.0-1.0) Neutrophils # (Auto) 5.5 (2.1-6.9) Lymphocytes # (Auto) 1.4 (1.0-3.2) Monocytes # (Auto) 0.5 (0.2-0.8) Eosinophils # (Auto) 0.1 (0.0-0.4) Basophils # (Auto) 0.0 (0.0-0.1) Absolute Immature Granulocyte (auto 0.04 x10e3/uL (0-0.1) Urine Color Yellow (YELLOW) Urine Clarity Clear (CLEAR) Urine pH 5.5 (5 - 7) Urine Specific Hersey >=1.030 (1.010-1.025) Urine Protein Negative (NEGATIVE) Urine Glucose (UA) Negative (NEGATIVE) Urine Ketones Trace (NEGATIVE) Urine Blood Large (NEGATIVE) Urine Nitrite Negative (NEGATIVE) Urine Bilirubin Small (NEGATIVE) Urine Urobilinogen 0.2 mg/dL (0.2 - 1) Urine Leukocyte Esterase Negative (NEGATIVE) Sodium Level 137 mmol/L (136-145) Potassium Level 4.4 mmol/L (3.5-5.1) Chloride Level 104 mmol/L (98-107) Carbon Dioxide Level 24 mmol/L (22-29) Anion Gap 13.4 mmol/L (8-16) Blood Urea Nitrogen 12 mg/dL (7-26) Creatinine 1.28 mg/dL (0.72-1.25) Estimat Glomerular Filtration Rate > 60 ML/MIN (60-) BUN/Creatinine Ratio 9 (6-25) Glucose Level 120 mg/dL (74-118) Calcium Level 9.2 mg/dL (8.4-10.2) Magnesium Level 1.8 MG/DL (1.3-2.1) Total Bilirubin 0.3 mg/dL (0.2-1.2) Aspartate Amino Transf (AST/SGOT) 22 IU/L (5-34) Alanine Aminotransferase (ALT/SGPT) 21 IU/L (0-55) Alkaline Phosphatase 76 IU/L (40-150) Creatine Kinase 229 IU/L (30-200) Creatine Kinase MB 1.20 ng/mL (0-5.0) Troponin I 0.007 ng/mL (0-0.300) Total Protein 7.3 g/dL (6.5-8.1) Albumin 4.2 g/dL (3.5-5.0) Globulin 3.1 g/dL (2.3-3.5) Albumin/Globulin Ratio 1.4 (0.8-2.0) Lab results reviewed: Yes Imaging Imaging results reviewed: Yes Impressions CT Abdomen and Pelvis without contrast INDICATION: ^[facility] Protocol ^[id number] ^0730 ^Y TECHNIQUE: Thin collimation axial images obtained from the diaphragm to the level of the pubic symphysis without nonionic intravenous contrast. Dose reduction techniques used: Automated exposure control, adjustment of the mAs and/or kVp according to patient size, standardized low-dose protocol, and/or iterative reconstruction technique. RADIATION DOSE: Total DLP: 715.7 mGy*cm Estimated effective dose: (DLP x 0.015 x size factor) mSv CTDIvol has been reviewed. It is below the limits set by the Radiation Protocol Committee (RPC). COMPARISON: Report of CT of the abdomen/pelvis performed 07/07/2011. ABDOMEN FINDINGS: Lung Bases: Noncalcified nodule in the lateral right lower lobe measures 3 mm. The visualized portion of the mediastinum is normal. Liver: Mildly decreased attenuation. No mass. Gallbladder: Present and appears normal. No ductal dilatation. Pancreas: Normal attenuation without mass. Spleen: Normal size without mass. Adrenal Glands: No evidence for mass. Kidneys: Right: No renal calculus. No cortical mass or hydronephrosis Left: Mildly edematous. Calculus in the interpolar region measures 4 mm. Lower pole calculus measures 6 mm. No cortical soft tissue mass. Mild fullness of the collecting system. No perinephric inflammation. Lymph Nodes: No enlarged abdominal or retroperitoneal lymph nodes. Aorta: Normal in diameter. PELVIS FINDINGS: Bowel: Stomach: Normal. Small Bowel: Normal in caliber with normal wall thickness. Large Bowel: Normal in caliber with normal wall thickness. Appendix: Not visualized. Bladder: 2 mm calculus in the posterior bladder to the left of midline. Ureters: Mild distention of the left ureter throughout its course with trace periureteric inflammation. The right ureter is normal. Peritoneum/retroperitoneum: No free fluid or fluid collection. Bones: Mild degenerative changes of the spine. Bilateral pars defects of L5 with grade 1 anterolisthesis of L5 on S1. Soft tissues: Small fat-containing umbilical hernia. IMPRESSION: 1. Mild left renal edema and minimal left hydroureteronephrosis secondary to a recently passed stone into the urinary bladder. 2. Left intrarenal calculi as described above. 3. Mildly decreased hepatic attenuation is suggestive of hepatocellular dysfunction, most commonly steatosis. Signed by: Dr. Delmi Sexton MD on 08/06/2019 8:16 AM Diagnostics Tests Diagnostic test(s) reviewed: Yes Procedures 12 Lead ECG Interpretation Target Setter: Interpreted by ED physician Date: Aug 06, 2019 Time: 07:05 Rhythm: sinus rhythm Rate: normal (76) QRS axis: normal ST segments normal: Yes T waves normal: Yes Clinical Impression: normal ECG Critical Care Time Subsequent provider I assumed direction of critical care for this patient from another provider of my specialty. Assessment & Plan Reassessment Reassessment left flank pain radiating to left groin - cbc, chem's, ua/cx, CT Abd/Pelvis - r/o UTI/pyelo, ureteral stone, r/o obstructive uropathy, diverticulitis Assessment & Plan Final Impression: (1) CALCULUS OF KIDNEY WITH CALCULUS OF URETER Assessment & Plan Toradol 10 mg po q8hr prn, Tylenol #3 1-2 po Q4hr prn (#15), Flomax 0.4 mg po qday, Strain all urine, F/U Urology Depart Disposition: HOME, SELF-CARE Last Vital Signs Date Time Temp Pulse Resp B/P (MAP) Pulse Ox O2 Delivery O2 Flow Rate FiO2 08/06/19 08:26 75 16 143/90 100 08/06/19 07:02 97.8 Home Meds No Active Prescriptions or Reported Meds Medications in the ED Ondansetron HCl 4 mg ONCE STAT IV Last administered on 08/06/19at 07:35; Admin Dose 4 MG; Start 08/06/19 at 07:18; Stop 08/06/19 at 07:19 Ketorolac Tromethamine 30 mg ONCE STAT IV Last administered on 08/06/19at 07:35; Admin Dose 30 MG; Start 08/06/19 at 07:18; Stop 08/06/19 at 07:19 Sodium Chloride 1,000 ml @ 0 mls/hr Q0M STAT IV Last administered on 08/06/19at 07:35; Admin Dose 1,000 MLS/HR; Start 08/06/19 at 07:18; Stop 08/06/19 at 07:19 JOSE MANUEL LORENZANA MD Aug 06, 2019 08:55
[2019-08-06 09:09] VITALS: BP 143/90
== END 2019-08-06 09:11 | disposition home or self-care (01) ==
LOC: ER 06:37
DX: M54.5 Low back pain (principal); R11.0 Nausea; R10.32 Left lower quadrant pain; N20.2 Calculus of kidney with calculus of ureter; F17.290 Nicotine dependence, other tobacco product, uncomplicated
CPT/HCPCS: 36415; 74176; 80053; 81001; 82550; 82553; 83735; 84484; 85025; 87086; 93005; 99284; J1885; J2405; J7030